=== PATIENT | female | born 1965 | race African-American/Black ===

== ENCOUNTER 2016-10-16 09:48 | Emergency (ER) | payer OTHER ==
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
[~2016-10-16 09:48] MED LIST: HYDROCODON-ACE1 EAC5 PO; MELOXICAM15 MG PO; SERTRALINE HCL50 MG PO; TOPAMAX200 MG PO
== END 2016-10-16 11:12 | disposition home or self-care (01) ==
LOC: SED 09:48
DX: S46.911A Strain of unspecified muscle, fascia and tendon at shoulder and upper arm level, right arm, initial encounter (principal); S00.83XA Contusion of other part of head, initial encounter; S80.02XA Contusion of left knee, initial encounter; Z79.899 Other long term (current) drug therapy; V23.4XXA Motorcycle driver injured in collision with car, pick-up truck or van in traffic accident, initial encounter; Y92.410 Unspecified street and highway as the place of occurrence of the external cause
CPT/HCPCS: 73030; 73562; 99284